=== PATIENT | female | born 1970 | race Caucasian/White ===

== ENCOUNTER 2024-12-02 12:19 | Emergency (ER) | payer BC ==
[~2024-12-02] VITALS: Ht 165.1 cm; Wt 70.2 kg
[2024-12-02 12:42] VITALS: BP 162/89; PULSE 101; RESP 18; TEMP 97.9; O2SAT 98
[2024-12-02] MEDS: rabies vaccine (PCEC)/PF 2.5 unit kit IMVAC ONE (15:44)
== END 2024-12-02 15:48 | disposition home or self-care (01) ==
LOC: ER 12:20
DX: S51.832A Puncture wound without foreign body of left forearm, initial encounter (principal); W55.01XA Bitten by cat, initial encounter; Y93.89 Activity, other specified; Y92.89 Other specified places as the place of occurrence of the external cause; Y99.8 Other external cause status
CPT/HCPCS: 90471; 90675; 99283

== ENCOUNTER 2024-12-05 18:38 | Emergency (ER) | payer BC ==
[~2024-12-05] VITALS: Ht 165.1 cm; Wt 70.9 kg
[2024-12-05 18:41] VITALS: BP 132/82; PULSE 87; RESP 15; TEMP 98.1; O2SAT 99
[2024-12-05] MEDS: rabies vaccine (PCEC)/PF 2.5 unit kit IMVAC ONE (19:26)
== END 2024-12-05 19:32 | disposition home or self-care (01) ==
LOC: ER 18:39
DX: S51.832D Puncture wound without foreign body of left forearm, subsequent encounter (principal); W55.01XD Bitten by cat, subsequent encounter
CPT/HCPCS: 90471; 90675; 99281

== ENCOUNTER 2024-12-09 17:24 | Emergency (ER) | payer BC ==
[~2024-12-09] VITALS: Ht 165.1 cm; Wt 77.0 kg
[2024-12-09] MEDS: rabies vaccine (PCEC)/PF 2.5 unit kit IMVAC ONE (18:19)
[2024-12-09 18:34] VITALS: BP 156/101; PULSE 79; RESP 16; TEMP 98.4; O2SAT 98
== END 2024-12-09 18:40 | disposition home or self-care (01) ==
LOC: ER 17:24
DX: S51.852A Open bite of left forearm, initial encounter (principal); Z23 Encounter for immunization; W55.01XA Bitten by cat, initial encounter; Y93.89 Activity, other specified; Y92.89 Other specified places as the place of occurrence of the external cause; Y99.8 Other external cause status
CPT/HCPCS: 90471; 90675; 99281